=== PATIENT | female | born 1955 | race Caucasian/White ===

== ENCOUNTER 2022-01-03 16:41 | Emergency (ER) | payer BC, OTHER ==
[2022-01-03] MEDS ORDERED: Acetaminophen 500 MG Tab PO ONE (17:57)
== END 2022-01-03 19:06 | disposition home or self-care (01) ==
LOC: DL.ED 16:41
DX: S06.0X1A Concussion with loss of consciousness of 30 minutes or less, initial encounter (principal); M47.892 Other spondylosis, cervical region; I10 Essential (primary) hypertension; Z88.1 Allergy status to other antibiotic agents; Y04.8XXA Assault by other bodily force, initial encounter; Y99.0 Civilian activity done for income or pay
CPT/HCPCS: 72125; 99284; A9270-GY